=== PATIENT | male | born 1975 | race African-American/Black ===

== ENCOUNTER 2020-03-15 04:51 | Emergency (ER) | payer OTHER ==
[2020-03-15] MEDS ORDERED: Lorazepam 2 MG/ML VIAL ONE (04:56)
[2020-03-15] MEDS ORDERED: levETIRAcetam in NS 1,000 MG in Premix Bag 1 BAG IVPB SCH (05:15)
[2020-03-15 05:22] LABS: #Basophils 0.1 thou/uL (0.0-0.2); #Eosinphils 0.2 thou/uL (0.0-0.7); #Lymphocytes 3.8 thou/uL (1.20-3.40); #Monocytes 1.2 thou/uL (0.11-0.59); #Neutrophils 4.6 thou/uL (1.40-6.50); %Basophils 1.2 % (0.0-1.0); %Eosinophils 1.8 % (0.0-10.0); %Lymphocytes 38.1 % (21.0-51.0); %Monocytes 12.3 % (0.0-10.0); %Neutrophils 46.5 % (42.0-75.0); Hemoglobin 16.4 g/dL (14.0-18.0); Mean Corpuscular HGB CONC 30.8 g/dL (32.0-36.0); Mean Corpuscular Hemoglobin 27.2 pg (27.0-31.0); Mean Corpuscular Volume 88.6 fL (78.0-98.0); Mean Platelet Volume 8.1 fL (7.4-10.4); Platelet Count 280 thou/uL (130-400); RBC Distribution Width 12.6 % (11.5-14.5); Red Blood Cell (RBC) Count 6.03 mill/uL (4.70-6.10); White Blood Cell (WBC) Count 9.9 thou/uL (4.8-10.8)
[2020-03-15] MEDS ORDERED: Midazolam HCl 5 mg/ml Vial ONE (05:28)
[2020-03-15 05:39] LABS: Acetaminophen Less than 6.0 mcg/mL (10.0-30.0); Alcohol Less than 10 mg/dL (Less than 10); CK (CPK) 880 U/L (30-200); Salicylate Less than 8.0 mg/dL (15.0-30.0)
[2020-03-15 05:42] LABS: ALT (SGPT) 28 U/L (8-55); AST (SGOT) 45 U/L (5-34); Albumin 4.6 g/dL (3.5-5.0); Alkaline Phosphatase 88 U/L (40-110); Anion Gap 19 mmol/L (10-20); BUN (Urea Nitrogen) 14 mg/dL (8.9-20.6); Bilirubin, Total 0.9 mg/dL (0.2-1.2); Calc. Creatinine Clearance 0 mL/min (70-130); Carbon Dioxide 22 mmol/L (22-29); Chloride 102 mmol/L (98-107); Globulin 3.9 g/dL (2.4-3.5); Glucose 129 mg/dL (70-105); Potassium 4.6 mmol/L (3.5-5.1); Protein, Total 8.5 g/dL (6.0-8.3); Sodium 138 mmol/L (136-145)
[2020-03-15 05:56] LABS: Bacteria/HPF None Seen HPF (None Seen); Bilirubin Negative (Negative); Blood, Urine Trace (Negative); Clarity Clear (Clear); Glucose, Urine (Dipstick) 200 mg/dL (Negative); Ketone, Urine Negative (Negative); Leukocyte Negative Leu/uL (Negative); Nitrite Negative (Negative); Protein, Urine (Dipstick) 20 mg/dL (Neg-Trace); Specific Gravity, Urine 1.017 (1.002-1.036); Squamous Epithelial None Seen HPF (0-3); Urobilinogen Normal mg/dL (Less than 2); WBC/HPF 0-3 HPF (0-3); pH, Urine 6.5 (5.0-9.0)
[2020-03-15 06:10] LABS: Medtox Reader # READER 1
[2020-03-15 06:11] LABS: Amphetamine Not Detected (NotDetected); Barbiturates Screen Not Detected (NotDetected); Benzodiazepine Screen Not Detected (NotDetected); Cocaine Metabolite Screen Detected (NotDetected); Medtox Control Line Valid? VALID (VALID); Methadone Not Detected (NotDetected); Methamphetamine Detected (NotDetected); Opiate Screen Not Detected (NotDetected); Oxycodone Screen Not Detected (NotDetected); Phencyclidine (PCP) Not Detected (NotDetected); THC/Cannabinoid Screen Not Detected (NotDetected); Tricyclic Screen Not Detected (NotDetected)
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
== END 2020-03-15 06:58 | disposition home or self-care (01) ==
LOC: EDBD 04:51 → ERS 04:51
DX: R56.9 Unspecified convulsions (principal); F19.10 Other psychoactive substance abuse, uncomplicated
CPT/HCPCS: 70450; 80053; 80306; 80307; 81003; 81015; 82550; 84484; 85025; 93005; 94760; J1953; J2060; J2250

== ENCOUNTER 2020-03-15 10:51 | Emergency (ER) | payer OTHER ==
[2020-03-15] MEDS ORDERED: Ketorolac Tromethamine 30 MG/ML VIAL ONE (12:33)
[2020-03-15 12:50] LABS: Hemoglobin 14.9 g/dL (14.0-18.0); Mean Corpuscular HGB CONC 31.8 g/dL (32.0-36.0); Mean Corpuscular Volume 88.2 fL (78.0-98.0); Mean Platelet Volume 7.7 fL (7.4-10.4); Platelet Count 246 thou/uL (130-400); RBC Distribution Width 12.5 % (11.5-14.5); Red Blood Cell (RBC) Count 5.33 mill/uL (4.70-6.10); White Blood Cell (WBC) Count 7.6 thou/uL (4.8-10.8)
[2020-03-15 13:06] LABS: Eosinophils 5 % (0-10); Lymphocytes 27 % (21-51); MDiff Complete? YES; Monocytes 18 % (0-10); Neutrophil 49 % (42-75); Platelet Morphology Comment Appears Adequate; Reactive Lymphocytes 1 % (0-10)
[2020-03-15 13:22] LABS: ALT (SGPT) 20 U/L (8-55); AST (SGOT) 35 U/L (5-34); Albumin 3.7 g/dL (3.5-5.0); Alkaline Phosphatase 72 U/L (40-110); Anion Gap 13 mmol/L (10-20); BUN (Urea Nitrogen) 11 mg/dL (8.9-20.6); Calc. Creatinine Clearance 0 mL/min (70-130); Calcium 8.4 mg/dL (7.8-10.44); Carbon Dioxide 23 mmol/L (22-29); Chloride 105 mmol/L (98-107); Globulin 3.3 g/dL (2.4-3.5); Glucose 97 mg/dL (70-105); Sodium 136 mmol/L (136-145)
== END 2020-03-15 13:47 | disposition home or self-care (01) ==
LOC: ERS 10:51
DX: N32.89 Other specified disorders of bladder (principal); Z79.899 Other long term (current) drug therapy
CPT/HCPCS: 51701; 70450; 80053; 80306; 80307; 81003; 81015; 82550; 84484; 85025; 87086; 93005; 94760; 96365; 96374; 96375; J1885; J1953; J2060; J2250

== ENCOUNTER 2020-03-20 10:41 | Emergency (ER) | payer OTHER ==
[2020-03-20] MEDS ORDERED: Ketorolac Tromethamine 30 MG/ML VIAL ONE (11:33)
[2020-03-20] MEDS ORDERED: Bacitracin 1 PK ONE (12:03)
[2020-03-20] MEDS ORDERED: Fentanyl 100 MCG/2 ML VIAL ONE (12:57)
[2020-03-20] MEDS ORDERED: Lorazepam 2 MG/ML VIAL ONE (13:05)
[2020-03-20 13:20] LABS: Hemoglobin 14.3 g/dL (14.0-18.0); Mean Corpuscular HGB CONC 32.2 g/dL (32.0-36.0); Mean Corpuscular Hemoglobin 28.3 pg (27.0-31.0); Mean Corpuscular Volume 87.9 fL (78.0-98.0); Mean Platelet Volume 7.9 fL (7.4-10.4); Platelet Count 235 thou/uL (130-400); RBC Distribution Width 12.3 % (11.5-14.5); Red Blood Cell (RBC) Count 5.05 mill/uL (4.70-6.10); White Blood Cell (WBC) Count 8.9 thou/uL (4.8-10.8)
[2020-03-20 13:21] LABS: ALT (SGPT) 29 U/L (8-55); AST (SGOT) 41 U/L (5-34); Albumin 3.8 g/dL (3.5-5.0); Alkaline Phosphatase 79 U/L (40-110); Anion Gap 16 mmol/L (10-20); BUN (Urea Nitrogen) 12 mg/dL (8.9-20.6); CK (CPK) 1208 U/L (30-200); Calc. Creatinine Clearance 0 mL/min (70-130); Calcium 8.6 mg/dL (7.8-10.44); Carbon Dioxide 19 mmol/L (22-29); Chloride 107 mmol/L (98-107); Globulin 3.3 g/dL (2.4-3.5); Glucose 94 mg/dL (70-105); Potassium 4.7 mmol/L (3.5-5.1); Protein, Total 7.1 g/dL (6.0-8.3); Sodium 137 mmol/L (136-145)
[2020-03-20 13:40] LABS: Band 14 % (5-11); Eosinophils 1 % (0-10); Lymphocytes 20 % (21-51); MDiff Complete? YES; Monocytes 18 % (0-10); Neutrophil 39 % (42-75); Platelet Morphology Comment Appears Adequate; Reactive Lymphocytes 7 % (0-10); Target Cells SLIGHT = 2-5 cells (100X) (0-1/hpf)
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
== END 2020-03-20 13:47 | disposition home or self-care (01) ==
LOC: ERS 10:41
DX: M79.10 Myalgia, unspecified site (principal); V89.2XXA Person injured in unspecified motor-vehicle accident, traffic, initial encounter
CPT/HCPCS: 36415; 71045; 80053; 82550; 85025; 96372; J1885; J2060; J3010

== ENCOUNTER 2020-05-19 11:10 | Observation (INO) | payer MEDICAID, OTHER ==
[~2020-05-19 11:10] MED LIST: Dexamethasone 20 MG/5 ML VIAL ONE; Esmolol 100 MG/10 ML VIAL ONE; Glycopyrrolate 0.2 MG/ML 5 ML SYRINGE ONE; Ketorolac Tromethamine 30 MG/ML VIAL ONE; Lidocaine 1% PF 5 ML VIAL ONE; Ondansetron PF 4 MG/2 ML Vial ONE; PROPOFOL 200 MG/20 ML VIAL ONE; Rocuronium Bromide 10 MG/ML (10ML VIAL) ONE; Succinylcholine 200 MG/10 ml SYRINGE FS ONE
[2020-05-19 11:51] LABS: #Eosinphils 0.1 thou/uL (0.0-0.7); #Lymphocytes 1.9 thou/uL (1.20-3.40); #Monocytes 1.1 thou/uL (0.11-0.59); %Basophils 0.4 % (0.0-1.0); %Eosinophils 0.6 % (0.0-10.0); %Lymphocytes 18.7 % (21.0-51.0); %Monocytes 10.5 % (0.0-10.0); %Neutrophils 69.9 % (42.0-75.0); Mean Corpuscular HGB CONC 31.6 g/dL (32.0-36.0); Mean Corpuscular Hemoglobin 27.7 pg (27.0-31.0); Mean Corpuscular Volume 87.7 fL (78.0-98.0); Mean Platelet Volume 7.8 fL (7.4-10.4); Platelet Count 253 thou/uL (130-400); RBC Distribution Width 12.2 % (11.5-14.5)
[2020-05-19 12:13] LABS: ALT (SGPT) 22 U/L (8-55); AST (SGOT) 22 U/L (5-34); Albumin 4.2 g/dL (3.5-5.0); Alkaline Phosphatase 95 U/L (40-110); Anion Gap 14 mmol/L (10-20); BUN (Urea Nitrogen) 12 mg/dL (8.9-20.6); Bilirubin, Total 0.4 mg/dL (0.2-1.2); Calc. Creatinine Clearance 0 mL/min (70-130); Carbon Dioxide 23 mmol/L (22-29); Chloride 103 mmol/L (98-107); Globulin 3.4 g/dL (2.4-3.5); Glucose 123 mg/dL (70-105); Lipase 25 U/L (8-78); Potassium 3.8 mmol/L (3.5-5.1); Protein, Total 7.6 g/dL (6.0-8.3); Sodium 136 mmol/L (136-145)
[2020-05-19] MEDS ORDERED: Ketorolac Tromethamine 30 MG/ML VIAL ONE (12:28)
[2020-05-19 13:20] LABS: Bilirubin Negative (Negative); Blood, Urine Negative (Negative); Clarity Clear (Clear); Glucose, Urine (Dipstick) 500 mg/dL (Negative); Ketone, Urine Negative (Negative); Leukocyte Negative Leu/uL (Negative); Nitrite Negative (Negative); Protein, Urine (Dipstick) 10 mg/dL (Neg-Trace); Specific Gravity, Urine 1.018 (1.002-1.036); Urobilinogen Normal mg/dL (Less than 2)
--- NOTE | 2020-05-19 13:29 | CT ---
CT of abdomen and pelvis: 05/19/2020 COMPARISON: 06/16/2017 HISTORY: Abdominal pain, right lower quadrant pain, hematuria TECHNIQUE: Axial CT imaging at 5 mm intervals from lung bases through pubic symphysis without contras t. Coronal reformatted imaging obtained. FINDINGS: Lack of contrast media limits assessment of the viscera, bowel, vascular structures, and fo r lymphadenopathy. The imaged lung bases demonstrate no acute findings. No free intraperitoneal air. Liver, gallbladder, spleen, pancreas, and adrenal glands appear grossly unremarkable. There is a tiny focus of increased density within the medial lower pole right renal cortex measuring in the 4-5 mm range, too small to characterize. No nephrolithiasis is noted on either side. No evidence for obstructive uropathy is noted on either side. Evaluation of the bowel is limited without oral contrast media. No evidence for bowel obstruction is noted. There is what appears to represent an inflamed thickened and dilated appendix within the right lower quadrant lateral to the psoas muscle on the right, best seen on the sagittal image 57. No acute osseous abnormality is noted. IMPRESSION: No evidence for nephrolithiasis or obstructive uropathy. Findings suspicious for appendic itis. Surgical consultation suggested. Dr. Westbrook made aware at 1:25 PM 05/19/2020.
[2020-05-19] MEDS ORDERED: Lorazepam 2 MG/ML VIAL ONE ×2 (13:42→22:39)
--- NOTE | 2020-05-19 13:43 | RAD ---
Exam:3 views left shoulder HISTORY: Pain and injury COMPARISON: 11/08/2016 FINDINGS: Glenohumeral joint space is preserved. No fracture or dislocation. Visualized left ribs and lung parenchyma are unremarkable IMPRESSION: No fracture or dislocation.
[2020-05-19] MEDS ORDERED: Acetaminophen/Codeine 30-300mg Tablet PO PRN ×3 (14:59→20:06)
[2020-05-19] MEDS ORDERED: levETIRAcetam 500 MG/100 ML PREMIX BAG ONE (15:04)
[2020-05-19] MEDS ORDERED: levETIRAcetam in NS 100 ML ONE (15:04)
[2020-05-19] MEDS ORDERED: XYLOCAINE 2%-EPI 1:100,000 20 ML VIAL ONE (15:05)
[2020-05-19] MEDS ORDERED: Bupivacaine 0.25% HCL 30 ML VIAL ONE ×2 (15:05→16:15)
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
--- NOTE | 2020-05-19 15:13 | CON ---
NEUROLOGY CONSULTATION DATE OF CONSULTATION: 05/19/2020 REASON FOR CONSULTATION: Breakthrough seizures. HISTORY OF PRESENT ILLNESS: Mr. Margaret Luciano is a 45-year-old male with history significant for seizure disorder, methamphetamine and cannabis abuse, who presented to the emergency room with abdominal pain and was found to have appendicitis. He has been scheduled to undergo surgery, but then he had generalized tonic-clonic seizure. Per , he had seizures 2-3 times a year and takes Topamax for seizures, but he has been out of Topamax for the last 2 to 3 weeks. Neurology was consulted to help with the management. The patient is extremely somnolent at this time and unable to provide the history. The history is obtained from the at bedside. REVIEW OF SYSTEMS: Unobtainable due to the patient's mental status. ALLERGIES; NKDA PAST MEDICAL HISTORY: Seizure disorder, methamphetamine abuse, cannabis abuse. ALLERGIES: NO KNOWN DRUG ALLERGIES. PAST SURGICAL HISTORY: Not significant. SOCIAL HISTORY: , lives with his . He does have history of marijuana and methamphetamine abuse. PHYSICAL EXAMINATION: VITAL SIGNS: Blood pressure 138/70, respirations 17, temperature 98. GENERAL: Somnolent male, in no acute distress. Grimaces to noxious stimuli. NECK: Supple CVS: Regular rate and rhythm. CHEST: Clear. ABDOMEN: Soft. NEUROLOGIC: Cranial nerves: Pupils 4 mm, round, react to light. Face symmetric. Tongue midline. Moves neck in both directions. Corneals positive. Cough positive. Motor: Muscle tone and bulk are normal. Moving all 4 extremities equally and symmetrically. Sensory: Withdraws to nailbed pressure bilaterally. Gait deferred due to the patient's safety reasons. Cerebellar could not be performed. DATA REVIEWED: I reviewed the head CT which was negative for acute intracranial pathology. CT abdomen showed findings suspicious for appendicitis. ASSESSMENT AND PLAN: Mr. Denzel Robles Jr. is a 45-year-old male with history significant for seizure disorder and medication noncompliance, presented with abdominal pain and was diagnosed with appendicitis. He is scheduled for surgery, but apparently had a generalized tonic-clonic seizure since he has been out of his medications for the last 3 weeks. We will load with Keppra 1.5 g IV now and then start on a 500 mg twice daily. Observe seizure precautions. Neuro checks every 4 hours. Ativan 2 mg IV for seizure greater than 2 minutes. Continue medical management per primary team. The patient should be discharged on Keppra 500 mg twice daily if stable if no further seizures with a followup with his primary care for further management of seizures. Medication compliance discussed with the . Plan discussed with the , ED physician and the primary attending Dr. Zurita. Thank you for the consult. Job ID: [id number] MTDD
[2020-05-19] MEDS ORDERED: levETIRAcetam in NS 1,500 MG in Premix Bag 1 BAG IVPB SCH (15:15)
[2020-05-19 15:30] LABS: SARS-CoV-2 NAA Rapid Test Not Detected (NotDetected)
[2020-05-19 15:46] LABS: INR-International Normal Ratio 0.9; PTT 30.3 sec (22.9-36.1); Prothrombin Time 12.8 sec (12.0-14.7)
[2020-05-19] MEDS ORDERED: cefOXitin Sodium/Dextrose 2 GM/50 ML BAG ONE (15:54)
[2020-05-19] MEDS ORDERED: EPINEPHrine 1 MG/ML AMP ONE (16:15)
[2020-05-19] MEDS ORDERED: Fentanyl 100 MCG/2 ML VIAL ONE (16:30)
[2020-05-19] MEDS ORDERED: Midazolam HCl 2 mg/2 ml Vial ONE (16:30)
[2020-05-19] MEDS ORDERED: SUGAMMADEX SODIUM 200 MG/2 ML VIAL ONE (17:57)
[2020-05-19] MEDS ORDERED: Labetalol HCl 100 MG/20 ML VIAL ONE (18:32)
[2020-05-19] MEDS ORDERED: Ibuprofen 600 MG TAB PO PRN (20:05)
[2020-05-19] MEDS ORDERED: levETIRAcetam 500 MG TAB PO SCH (21:00)
[2020-05-19] MEDS ORDERED: levETIRAcetam in NS 500 MG in Premix Bag 1 BAG IVPB SCH (23:00)
[2020-05-19] MEDS ORDERED: Lorazepam 2 MG/ML VIAL SLOW IVP SCH (23:00)
[2020-05-19 23:56] VITALS: BMI 31.0
[2020-05-20] MEDS ORDERED: Lorazepam 2 MG/ML VIAL SLOW IVP PRN (00:15)
--- NOTE | 2020-05-20 00:45 | OP ---
DATE OF PROCEDURE: 05/19/2020 PREOPERATIVE DIAGNOSIS: Acute appendicitis. POSTOPERATIVE DIAGNOSIS: Acute appendicitis. PROCEDURE PERFORMED: Laparoscopic appendectomy. ANESTHESIA: General endotracheal. ESTIMATED BLOOD LOSS: 5 mL. FLUIDS GIVEN: 1000 mL of crystalloids. COUNTS: Sponge and instrument counts were verified as correct x2. COMPLICATIONS: None apparent at the time of operation. INDICATIONS FOR OPERATION: This is a 45-year-old man who presented with insidious onset periumbilical to right lower quadrant abdominal pain. Clinical and radiographic examination were consistent with acute appendicitis, for which the patient was brought to the operating room for appendectomy. Findings are consistent with dilated but nonperforated retrocecal appendix. DESCRIPTION OF PROCEDURE: Informed consent was obtained from the patient who was brought to the operating room and placed in supine position. Following general anesthesia, a Mendenhall catheter inserted and placed to bedside drain. The abdomen was sterilely prepped and draped in the usual fashion. Skin below the umbilicus was infiltrated with 0.25% Marcaine with epinephrine. A small curvilinear infraumbilical incision was made using 11 scalpel. Umbilical stalk was grasped with Parul and elevated. A Veress needle was inserted through the incision through which the abdomen was insufflated with 3 L of CO2 gas. Following abdominal insufflation, Veress needle was removed and a 5 mm trocar introduced using a Visiport under laparoscopy. Laparoscopy confirmed proper placement of the port. No injuries to underlying structures. Additional laparoscopy reveals the right lower quadrant partially obscured by omental adhesions. Under direct laparoscopy, two 5 mm suprapubic and left lower quadrant ports were placed after the overlying skin infiltrated with 0.25% Marcaine with epinephrine, and an appropriate incision was made. The patient was placed in a Trendelenburg position, rotated to his left. I introduced a Prestige grasper through the left lower quadrant port site, using this to bluntly take down omental adhesions to expose a retrocecal appendix which was dilated without any evidence of perforation. Endo [place] forceps introduced through the suprapubic port site grasping the appendix, which was elevated. I then used a LigaSure device to serially divide the mesoappendix down to the base with good hemostasis. The appendix itself was divided at the appendicocecal junction between endo-loops and delivered off the abdominal cavity using an EndoCatch. The small bowel was run from the ileocecal junction to proximal 2 feet finding no Meckel diverticulum. Laparoscopy was terminated at this juncture, finding no other pathology. Fascia of the left lower quadrant port was closed using 0 Vicryl suture on a UR6 under direct vision. The abdomen was desufflated. All ports and instruments were removed and accounted for. Skin incisions were closed using 4-0 Monocryl suture in subcuticular fashion. Dermabond was applied over incisional closure. The patient tolerated the operation without any apparent complication and was returned to recovery room in satisfactory condition. Job ID: [id number]
[2020-05-20 05:17] VITALS: TEMP 98
[2020-05-20] MEDS ORDERED: Ondansetron PF 4 MG/2 ML Vial IVP PRN (07:58)
[2020-05-20] MEDS ORDERED: Ondansetron ORAL SOLN. 4 MG/5 ML UDCUP PO PRN (07:58)
[2020-05-20 08:22] VITALS: BP 133/93
[2020-05-20] MEDS ORDERED: Senokot 8.6 MG TAB PO SCH (09:00)
[2020-05-20] MEDS ORDERED: FLU VACC QS2020-21(6MOS UP)/PF 60 MCG/0.5 ML SYRINGE IM ONE (09:00)
[2020-05-20] MEDS ORDERED: Polyethylene Glycol 3350 17 GM Packet PO SCH (09:00)
[2020-05-20] MEDS ORDERED: Famotidine 20 MG TAB PO SCH (09:00)
[2020-05-20] MEDS ORDERED: levETIRAcetam in NS 500 MG in Premix Bag 1 BAG IVPB SCH (09:00)
--- NOTE | 2020-05-20 14:14 | DIS ---
DATE OF ADMISSION: 05/19/2020 DATE OF DISCHARGE: 05/20/2020 PROCEDURE: Laparoscopic appendectomy for acute appendicitis. PRIMARY DIAGNOSIS: Acute appendicitis. SECONDARY DIAGNOSES: Epilepsy, noncompliant with medications, hypertension, hyperlipidemia, type 2 diabetes. DISCHARGE MEDICATIONS: 1. Acetaminophen with codeine 1-2 tabs p.o. q.6 hours p.r.n. pain, #30, no refills. 2. Keppra 500 mg p.o. b.i.d., #60, no refills. 3. Gabapentin 300 mg p.o. 3 times a day, #90, no refills. 4. MiraLAX as needed for constipation. 5. Senokot as needed for constipation. 6. Ibuprofen 600 mg p.o. q.8 hours p.r.n. pain. Discontinued Medications: None. HISTORY OF PRESENT ILLNESS AND HOSPITAL COURSE: This is a 45-year-old gentleman who presented to the emergency room with periumbilical pain and right flank abdominal pain. The patient did report some nausea, but no emesis. The patient denied any fever or chills. The patient was found to have an acute appendicitis with localized peritonitis. The patient's pain was controlled pre and postop. The patient did have a seizure preop and again postop. The patient was started on Keppra, and Neurology was consulted. The patient was able to tolerate a regular diet on the day of discharge. The patient was examined by Dr. Zurita on the day of discharge. His exam was unremarkable including cardiopulmonary and GI exam. The patient was passing flatus, but no bowel movement. The patient was deemed stable for discharge home. DISPOSITION: Stable. DISCHARGE INSTRUCTIONS: Location: Home. Diet: Diabetic diet as tolerated. Activity: The patient is to ambulate frequently. No heavy lifting greater than 20 pounds for 2 weeks and not before his followup appointment. The patient is to not soak in bath water or bathtub. The patient may shower. Keep incision sites clean and dry. Followup: Follow up with Dr. Zurita on June 02 at 2 p.m. This will likely be a telephone visit. Follow up with Dr. Hinojosa at the [facility] in 7 days to manage your seizure medications. The patient has been instructed to take his medications as prescribed. The patient has also been instructed to avoid illicit drug use. The patient voiced understanding of his discharge instructions. The [place] prescription monitoring program was accessed and appropriate. Greater than 50% of the 30 minutes was spent educating the patient about his discharge instructions, medications, and followup appointments. Job ID: [id number]
[2020-05-20] MEDS ORDERED: Gabapentin 300 MG CAP PO SCH (15:00)
== END 2020-05-20 11:22 | disposition home or self-care (01) ==
LOC: ERS 11:10 → SDC 15:38 → T4-B 19:04
PROVIDERS: ADMIT Surgery; ATTEND Surgery
PROC: 0DTJ4ZZ Resection of Appendix, Percutaneous Endoscopic Approach (ICD-10-PCS; principal; 2020-05-19)
DX: K35.30 Acute appendicitis with localized peritonitis, without perforation or gangrene (principal); G40.409 Other generalized epilepsy and epileptic syndromes, not intractable, without status epilepticus; I10 Essential (primary) hypertension; E78.5 Hyperlipidemia, unspecified; E11.9 Type 2 diabetes mellitus without complications; F17.210 Nicotine dependence, cigarettes, uncomplicated; F15.10 Other stimulant abuse, uncomplicated; F12.10 Cannabis abuse, uncomplicated; Z91.14 Patient's other noncompliance with medication regimen; Z79.899 Other long term (current) drug therapy; Z88.5 Allergy status to narcotic agent; Z20.822 Contact with and (suspected) exposure to COVID-19
CPT/HCPCS: 36415; 36416; 74176; 80053; 81003; 83690; 84146; 85025; 85610; 85730; 88304; 96365; 96372; 96375; G0378; J0171; J0694; J1100; J1885; J1953; J2060; J2250; J2405; J2704; J3010; S0020; U0002

== ENCOUNTER 2020-08-26 18:54 | Emergency (ER) | payer OTHER ==
[~2020-08-26 18:54] MED LIST changes: -Dexamethasone 20 MG/5 ML VIAL ONE; -Esmolol 100 MG/10 ML VIAL ONE; -Glycopyrrolate 0.2 MG/ML 5 ML SYRINGE ONE; +Iopamidol-370 76% 500 ML 1 ML ONE; -Ketorolac Tromethamine 30 MG/ML VIAL ONE; -Lidocaine 1% PF 5 ML VIAL ONE; -Ondansetron PF 4 MG/2 ML Vial ONE; -PROPOFOL 200 MG/20 ML VIAL ONE; -Rocuronium Bromide 10 MG/ML (10ML VIAL) ONE; -Succinylcholine 200 MG/10 ml SYRINGE FS ONE
[2020-08-26 19:29] LABS: #Basophils 0.1 thou/uL (0.0-0.2); #Eosinphils 0.1 thou/uL (0.0-0.7); #Lymphocytes 1.9 thou/uL (1.20-3.40); #Monocytes 0.6 thou/uL (0.11-0.59); #Neutrophils 2.7 thou/uL (1.40-6.50); %Basophils 1.1 % (0.0-1.0); %Eosinophils 1.6 % (0.0-10.0); %Lymphocytes 35.2 % (21.0-51.0); %Monocytes 10.6 % (0.0-10.0); %Neutrophils 51.6 % (42.0-75.0); Hemoglobin 14.2 g/dL (14.0-18.0); Mean Corpuscular HGB CONC 32.5 g/dL (32.0-36.0); Mean Corpuscular Hemoglobin 28.8 pg (27.0-31.0); Mean Corpuscular Volume 88.6 fL (78.0-98.0); Mean Platelet Volume 7.7 fL (7.4-10.4); Platelet Count 260 thou/uL (130-400); RBC Distribution Width 12.8 % (11.5-14.5); Red Blood Cell (RBC) Count 4.94 mill/uL (4.70-6.10); White Blood Cell (WBC) Count 5.5 thou/uL (4.8-10.8)
[2020-08-26 19:33] LABS: PTT 30.2 sec (22.9-36.1); Prothrombin Time 12.9 sec (12.0-14.7)
[2020-08-26] MEDS ORDERED: levETIRAcetam in NS 200 ML ONE (19:37)
[2020-08-26 19:38] LABS: ALT (SGPT) 13 U/L (8-55); AST (SGOT) 21 U/L (5-34); Albumin 3.8 g/dL (3.5-5.0); Alkaline Phosphatase 77 U/L (40-110); Anion Gap 11 mmol/L (10-20); BUN (Urea Nitrogen) 11 mg/dL (8.9-20.6); Bilirubin, Total 0.4 mg/dL (0.2-1.2); Calc. Creatinine Clearance 0 mL/min (70-130); Calcium 8.7 mg/dL (7.8-10.44); Carbon Dioxide 25 mmol/L (22-29); Chloride 106 mmol/L (98-107); Glucose 121 mg/dL (70-105); Potassium 3.7 mmol/L (3.5-5.1); Protein, Total 6.8 g/dL (6.0-8.3); Sodium 138 mmol/L (136-145)
[2020-08-26 19:39] LABS: Acetaminophen Less than 6.0 mcg/mL (10.0-30.0); Alcohol Less than 10 mg/dL (Less than 10); Salicylate Less than 8.0 mg/dL (15.0-30.0)
== END 2020-08-26 22:31 | disposition home or self-care (01) ==
LOC: ERS 18:54
DX: R56.9 Unspecified convulsions (principal); I25.2 Old myocardial infarction
CPT/HCPCS: 36415; 36416; 70450; 70496; 70498; 80053; 80307; 82550; 84484; 85025; 85610; 85730; 93005; 94760; 96365; J1953; Q9967

== ENCOUNTER 2020-12-07 19:01 | Emergency (ER) | payer OTHER ==
[2020-12-07] MEDS ORDERED: levETIRAcetam in NS 100 ML ONE (19:58)
[2020-12-07 20:03] LABS: #Basophils 0.1 thou/uL (0.0-0.2); #Eosinphils 0.1 thou/uL (0.0-0.7); #Lymphocytes 2.1 thou/uL (1.20-3.40); #Monocytes 0.9 thou/uL (0.11-0.59); #Neutrophils 4.9 thou/uL (1.40-6.50); %Basophils 0.8 % (0.0-1.0); %Eosinophils 0.9 % (0.0-10.0); %Lymphocytes 26.5 % (21.0-51.0); %Neutrophils 60.9 % (42.0-75.0); Hemoglobin 15.1 g/dL (14.0-18.0); Mean Corpuscular HGB CONC 31.7 g/dL (32.0-36.0); Mean Corpuscular Hemoglobin 27.8 pg (27.0-31.0); Mean Corpuscular Volume 87.6 fL (78.0-98.0); Mean Platelet Volume 7.3 fL (7.4-10.4); Platelet Count 237 thou/uL (130-400); RBC Distribution Width 12.5 % (11.5-14.5); Red Blood Cell (RBC) Count 5.41 mill/uL (4.70-6.10); White Blood Cell (WBC) Count 8.1 thou/uL (4.8-10.8)
[2020-12-07 20:07] LABS: Bilirubin Negative (Negative); Blood, Urine Moderate (Negative); Glucose, Urine (Dipstick) Negative (Negative); Ketone, Urine Trace mg/dL (Negative); Leukocyte Negative (Negative); Nitrite Negative (Negative); Protein, Urine (Dipstick) 100 mg/dL (Neg-Trace)
[2020-12-07 20:10] LABS: Clarity Clear (Clear)
[2020-12-07 20:11] LABS: Specific Gravity, Urine 1.033 (1.002-1.036)
[2020-12-07 20:13] LABS: Amphetamine Detected (NotDetected); Bacteria/HPF Rare-Few HPF (None Seen); Barbiturates Screen Not Detected (NotDetected); Benzodiazepine Screen Not Detected (NotDetected); Cocaine Metabolite Screen Detected (NotDetected); Methadone Not Detected (NotDetected); Methamphetamine Detected (NotDetected); Opiate Screen Not Detected (NotDetected); Oxycodone Screen Not Detected (NotDetected); Phencyclidine (PCP) Not Detected (NotDetected); Sperm/HPF 1+ HPF (None Seen); Squamous Epithelial None Seen HPF (0-3); THC/Cannabinoid Screen Not Detected (NotDetected); Tricyclic Screen Not Detected (NotDetected); WBC/HPF 0-3 HPF (0-3)
[2020-12-07 20:14] LABS: Calcium Oxalate Crystals 3+ HPF (None Seen)
[2020-12-07 20:15] LABS: Other Microscopic Description Less than 2 mL rec'd
[2020-12-07 20:25] LABS: ALT (SGPT) 23 U/L (8-55); AST (SGOT) 26 U/L (5-34); Albumin 3.9 g/dL (3.5-5.0); Alkaline Phosphatase 83 U/L (40-110); Anion Gap 16 mmol/L (10-20); BUN (Urea Nitrogen) 18 mg/dL (8.9-20.6); Bilirubin, Total 0.3 mg/dL (0.2-1.2); CK (CPK) 416 U/L (30-200); Calc. Creatinine Clearance 0 mL/min (70-130); Carbon Dioxide 20 mmol/L (22-29); Chloride 107 mmol/L (98-107); Globulin 3.1 g/dL (2.4-3.5); Glucose 111 mg/dL (70-105); Potassium 3.9 mmol/L (3.5-5.1); Sodium 139 mmol/L (136-145)
[2020-12-07 20:28] LABS: Acetaminophen Less than 6.0 mcg/mL (10.0-30.0); Alcohol Less than 10 mg/dL (Less than 10); Salicylate Less than 8.0 mg/dL (15.0-30.0)
[2020-12-07] MEDS ORDERED: cefTRIAXone\\ROCEPHIN 500 MG VIAL ONE (21:52)
[2020-12-07] MEDS ORDERED: Lidocaine 1% PF 5 ML VIAL ONE (21:52)
== END 2020-12-07 23:20 ==
LOC: ERS 19:01 → EEVIPCON 19:01 → ERS 23:20
DX: G40.909 Epilepsy, unspecified, not intractable, without status epilepticus (principal); N17.9 Acute kidney failure, unspecified; I25.10 Atherosclerotic heart disease of native coronary artery without angina pectoris; I25.2 Old myocardial infarction; Z79.899 Other long term (current) drug therapy
CPT/HCPCS: 36415; 70450; 80053; 80306; 80307; 81003; 81015; 82550; 84484; 85025; 93005; J0696; J1953

== ENCOUNTER 2020-12-08 16:09 | Emergency (ER) | payer OTHER ==
[2020-12-08 16:38] LABS: #Basophils 0.1 thou/uL (0.0-0.2); #Eosinphils 0.2 thou/uL (0.0-0.7); #Lymphocytes 2.7 thou/uL (1.20-3.40); #Monocytes 0.8 thou/uL (0.11-0.59); #Neutrophils 5.2 thou/uL (1.40-6.50); %Basophils 0.8 % (0.0-1.0); %Eosinophils 1.9 % (0.0-10.0); %Lymphocytes 30.2 % (21.0-51.0); %Neutrophils 58.2 % (42.0-75.0); Mean Corpuscular HGB CONC 33.3 g/dL (32.0-36.0); Mean Corpuscular Hemoglobin 29.3 pg (27.0-31.0); Mean Corpuscular Volume 87.9 fL (78.0-98.0); Mean Platelet Volume 7.5 fL (7.4-10.4); Platelet Count 272 thou/uL (130-400); RBC Distribution Width 12.5 % (11.5-14.5); Red Blood Cell (RBC) Count 5.11 mill/uL (4.70-6.10)
[2020-12-08 17:03] LABS: Acetaminophen Less than 6.0 mcg/mL (10.0-30.0); Alcohol Less than 10 mg/dL (Less than 10); CK (CPK) 2448 U/L (30-200); Salicylate Less than 8.0 mg/dL (15.0-30.0)
[2020-12-08 17:53] LABS: ALT (SGPT) 26 U/L (8-55); AST (SGOT) 52 U/L (5-34); Albumin 4.1 g/dL (3.5-5.0); Alkaline Phosphatase 93 U/L (40-110); Anion Gap 15 mmol/L (10-20); BUN (Urea Nitrogen) 15 mg/dL (8.9-20.6); Bilirubin, Total 0.6 mg/dL (0.2-1.2); Calc. Creatinine Clearance 0 mL/min (70-130); Calcium 9.2 mg/dL (7.8-10.44); Carbon Dioxide 21 mmol/L (22-29); Chloride 108 mmol/L (98-107); Globulin 3.2 g/dL (2.4-3.5); Glucose 108 mg/dL (70-105); Protein, Total 7.3 g/dL (6.0-8.3); Sodium 140 mmol/L (136-145)
== END 2020-12-08 23:10 | disposition home or self-care (01) ==
LOC: ERS 16:09
DX: F14.10 Cocaine abuse, uncomplicated (principal); F15.10 Other stimulant abuse, uncomplicated; I25.10 Atherosclerotic heart disease of native coronary artery without angina pectoris; I25.2 Old myocardial infarction; Z87.442 Personal history of urinary calculi; G40.909 Epilepsy, unspecified, not intractable, without status epilepticus; N17.9 Acute kidney failure, unspecified; Z79.899 Other long term (current) drug therapy
CPT/HCPCS: 36415; 51701; 70450; 80053; 80306; 80307; 81003; 81015; 82550; 84484; 85025; 93005; 96365; 96372; 96374; J0696; J1953